=== PATIENT | female | born 1950 | race Caucasian/White ===

== ENCOUNTER → 2017-05-04 | Outpatient (CLI) | payer MEDICARE, BC ==
[~2017-05-04] MED LIST: CALCIUM + D SO1 EACH PO; CO Q-1010 MG PO; COZAAR100 MG PO; GLUCOPHAGE500 MG PO; IMDUR30 MG PO; MULTI VITAMIN1 EACH PO; OMEGA 3 FISH O1 EACH PO; TAMBOCOR100 MG PO; TOPROL XL25 MG PO; VITAMIN D350000 UNIT PO; XARELTO20 MG PO; ZOCOR40 MG PO
== END | disposition disaster alternative care site (69) ==
LOC: GDIC 10:10
DX: E11.9 Type 2 diabetes mellitus without complications (principal)
CPT/HCPCS: G0108

== ENCOUNTER → 2017-05-09 | Outpatient (CLI) | payer MEDICARE, BC ==
--- NOTE | ~2017-05-09 | PUL ---
PATIENT'S NAME: LUIS NNUEZ [facility] AGE: 67 Y [address] ROOM: [place] [address] LOCATION: [facility] ADMIT DATE: 05/09/2017 Pulmonary DISCHARGE DATE: FAMILY PHYSICIAN: CELESTE DILLARD MD ATTENDING PHYSICIAN: SILAS CLEMENT NAME OF PROCEDURE: Home Sleep Test DATE OF PROCEDURE: 05/09/2017 TECH: Osiris Siddiqui [facility] SUMMARY: Patient underwent home sleep testing using a type III device and was studied for 8 hours 56 minutes. There were 49 apneas and 135 hypopneas for an apnea/hypopnea index severely elevated at 21 events per hour. Oxygen saturations ranged from 69%-92%. Heart rate ranged from 48 to 89 beats per minute. IMPRESSION: Severe obstructive sleep apnea. PLAN: Would consider CPAP either auto titrating or initiated via a CPAP titration study. JOLEEN NEUMANN MD [facility]/ /[id number] dtt: 05/11/17 1303 , Joleen Neumann. dtd: 05/11/17 1112
== END | disposition disaster alternative care site (69) ==
LOC: GSLP 04-20 10:19
DX: G47.33 Obstructive sleep apnea (adult) (pediatric) (principal)
CPT/HCPCS: G0399

== ENCOUNTER → 2017-05-14 | Outpatient (CLI) | payer MEDICARE, BC | END | disposition disaster alternative care site (69) | LOC: GNUT 04-30 10:30 | DX: E11.65 Type 2 diabetes mellitus with hyperglycemia (principal) | CPT/HCPCS: G0270 ==